=== PATIENT | female | born 1960 | race African-American/Black ===

== ENCOUNTER 2020-03-15 10:52 | Outpatient (REF) | payer OTHER, SELFPAY ==
--- NOTE | 2020-03-15 10:56 | MM_ITS ---
EXAMINATION: MM SCREENING DIGITAL BREAST TOMOSYNTHESIS, BILATERAL CLINICAL INFORMATION: Screening. Asymptomatic. The lifetime risk of breast cancer based on the Tyrer-Cuzick Model is 6%. COMPARISON: Mammography: 03/10/2019, 03/04/2018, 02/16/2017 TECHNIQUE: Digital breast tomosynthesis is performed in both the craniocaudal and mediolateral oblique views along with computer-aided detection (CAD). Synthesized 2D images are generated from the tomosynthesis. FINDINGS: The breasts are almost entirely fatty (ACR BI-RADS breast composition Category a). There are no significant masses, abnormal calcifications, or other abnormalities. Background stromal and fibroglandular densities are stable. The axilla and skin contours are unremarkable. MM/MM tomosynthesis screening BI IMPRESSION: No mammographic evidence of malignancy. ASSESSMENT: BI-RADS 1: Negative RECOMMENDATION: Routine annual mammography screening. This patient's information was entered into a reminder system with a target due date for their next mammogram.
== END 2020-03-15 10:53 | disposition home or self-care (01) ==
LOC: HO.MAMMO 10:52
PROVIDERS: PCP Internal Medicine; Visit Provider Internal Medicine
DX: Z12.31 Encounter for screening mammogram for malignant neoplasm of breast (principal)
CPT/HCPCS: 77063; 77067

== ENCOUNTER 2021-05-11 14:18 | Outpatient (REF) | payer OTHER, SELFPAY ==
--- NOTE | ~2021-05-11 | MM_ITS ---
EXAMINATION: MM SCREENING DIGITAL BREAST TOMOSYNTHESIS, BILATERAL CLINICAL INFORMATION: Screening. Asymptomatic. The lifetime risk of breast cancer based on the Tyrer-Cuzick Model is 7%. COMPARISON: Mammography: 03/15/2020, 03/10/2019, 03/04/2018 TECHNIQUE: Digital breast tomosynthesis is performed in both the craniocaudal and mediolateral oblique views along with computer-aided detection (CAD). Synthesized 2D images are generated from the tomosynthesis. FINDINGS: The breasts are almost entirely fatty (ACR BI-RADS breast composition Category a). Stromal and fibroglandular densities are stable. There are no significant masses, abnormal calcifications, or other abnormalities. The skin contours are smooth. The axilla are unremarkable. There are no significant changes from prior studies. MM/MM tomosynthesis screening BI IMPRESSION: No mammographic evidence of malignancy. ASSESSMENT: BI-RADS 1: Negative RECOMMENDATION: Routine annual mammography screening. This patient's information was entered into a reminder system with a target due date for their next mammogram.
== END 2021-05-11 14:19 | disposition home or self-care (01) ==
LOC: HO.MAMMO 14:18
PROVIDERS: PCP Internal Medicine; Visit Provider Internal Medicine
DX: Z12.31 Encounter for screening mammogram for malignant neoplasm of breast (principal)
CPT/HCPCS: 77063; 77067

== ENCOUNTER 2022-05-17 09:27 | Outpatient (REF) | payer OTHER, SELFPAY ==
--- NOTE | ~2022-05-17 | MM_ITS ---
EXAMINATION: MM SCREENING DIGITAL BREAST TOMOSYNTHESIS, BILATERAL CLINICAL INFORMATION: Screening. Asymptomatic. The lifetime risk of breast cancer based on the Tyrer-Cuzick Model is 7%. COMPARISON: Mammography: 05/11/2021, 03/15/2020, 03/10/2019 TECHNIQUE: Digital breast tomosynthesis is performed in both the craniocaudal and mediolateral oblique views along with computer-aided detection (CAD). Synthesized 2D images are generated from the tomosynthesis. Additional left CC and left MLO views are provided. FINDINGS: The breasts are almost entirely fatty (ACR BI-RADS breast composition Category a). There are no significant masses, abnormal calcifications, or other abnormalities. Background stromal and fibroglandular densities are similar to previous exams. No developing density or architectural abnormality. The axilla and skin contours are unremarkable. No significant changes. MM/MM tomosynthesis screening BI IMPRESSION: No mammographic evidence of malignancy. ASSESSMENT: BI-RADS 1: Negative RECOMMENDATION: Routine annual mammography screening. This patient's information was entered into a reminder system with a target due date for their next mammogram.
== END 2022-05-17 09:28 | disposition home or self-care (01) ==
LOC: HO.MAMMO 09:27
PROVIDERS: Absent Provider Nurse Practitioner Women's Health; Visit Provider Internal Medicine
DX: Z12.31 Encounter for screening mammogram for malignant neoplasm of breast (principal)
CPT/HCPCS: 77063; 77067

== ENCOUNTER 2023-05-31 09:47 | Outpatient (REF) | payer OTHER, SELFPAY | END 2023-05-31 09:48 | disposition home or self-care (01) | LOC: HO.MAMMO 09:47 | PROVIDERS: PCP Internal Medicine; Visit Provider Internal Medicine | DX: Z12.31 Encounter for screening mammogram for malignant neoplasm of breast (principal) | CPT/HCPCS: 77063; 77067 ==

== ENCOUNTER → 2023-05-31 10:00 | Outpatient (BNV) | payer OTHER, SELFPAY | PROVIDERS: PCP Internal Medicine; Visit Provider Radiology Diagnostic Radiology | DX: Z12.31 Encounter for screening mammogram for malignant neoplasm of breast (principal) | CPT/HCPCS: 77063; 77067 ==

== ENCOUNTER 2024-06-05 10:19 | Outpatient (REF) | payer OTHER, SELFPAY ==
--- OUTSIDE RECORDS SUMMARY | 2024-06-05 12:06 | XMS_ITS | Patient Health Record ---
Author Organization [facility] Address [address] [place] [address] Care Team Providers Care Freight Representative Name Role Phone Karoline Ceron Unavailable [phone] Reason For Referral No Information Medications Medication SIG (Take, Route, Frequency, Duration) Notes Start Date End Date Status amLODIPine Besylate 5MG 1 ORAL daily for -3 [facility] Active hydroCHLOROthiazide 25mg 1 ORAL daily for -3 [facility] 03/01 Active Problems Problem Type SNOMED Code ICD Code Onset Dates Problem Status W/U Status Risk Notes Problem Postmenopausal bleeding (78644229) Postmenopausal bleeding (627.1) Active confirmed Diag Plan Of Treatment No Information Insurance Providers Payer Name Payer Address Payer Phone Subscriber Number Group Number Insured Name Patient Relationship to Insured Coverage Start Date Coverage End Date [facility] [address] [place] [address] [phone] [id number] BERNARDINO HOOKS Self - patient is the insured
== END 2024-06-05 10:20 | disposition home or self-care (01) ==
LOC: HO.MAMMO 10:19
PROVIDERS: PCP Internal Medicine; Visit Provider Internal Medicine
DX: Z12.31 Encounter for screening mammogram for malignant neoplasm of breast (principal)
CPT/HCPCS: 77063; 77067

== ENCOUNTER → 2024-06-05 10:30 | Outpatient (BNV) | payer OTHER, SELFPAY | PROVIDERS: PCP Internal Medicine; Visit Provider Internal Medicine | DX: Z12.31 Encounter for screening mammogram for malignant neoplasm of breast (principal) | CPT/HCPCS: 77063; 77067 ==

== ENCOUNTER 2025-01-16 09:16 | Outpatient (AMB) | payer OTHER, SELFPAY ==
--- NOTE | 2025-01-16 09:22 | A.OFFPC_ITS ---
Vital Signs 01/16/25 09:23 Height 5 ft 3.5 in Weight 211 lb 2 oz BMI 36.8 BP 130/80 Blood Pressure Location Lt brachial Position Sitting Respiration 16 Pulse 72 Pulse Source Pulse Oximeter Temp 97.1 F Temp Source Temporal Artery Scan Pulse Oximetry (%) 98 Oxygen Delivery Method Room Air Intake Visit Reasons: reestablish care, routine Project Associate Required: No Accompanied by: Self / Same As Patient Allergies No Known Allergies Allergy (Verified 01/16/25 09:25) Medication List - Last Reconciled 01/16/25 by Isha Moyer MD albuterol sulfate 90 mcg/actuation 2 puffs inhalation QID PRN amlodipine 10 mg PO DAILY ascorbic acid (vitamin C) 500 mg PO DAILY carbamide peroxide 6.5% (Ear Drops (carbamide peroxide)) 5 drps otic (ear) right TID PRN fluticasone propionate 50 mcg/actuation 2 sprays intranasal DAILY magnesium oxide 400 mg PO DAILY multivitamin 1 tab PO DAILY multivitamin with minerals (Hair,Skin and Nails tablet) 1 tab PO DAILY simvastatin 10 mg PO BEDTIME spironolactone 25 mg PO DAILY valsartan 40 mg PO DAILY Tobacco use date assessed: 01/16/25 Fall risk assessment: No Falls in past year Last assessed Fall Risk: 01/16/25 Dental Screening Dental Screen Date: 01/16/25 Did you have a dental visit in the last 12 months?: No Did you have a dental problem in the last 6 months where you did not have access to dental care?: No Was dental information given to patient?: Patient has dentist HPI HPI Comments History of Present Illness Details The patient is a 64-year-old female presenting to re-establish care and to discuss multiple concerns. Obesity: The patient reports a 4-pound weight gain. A previous attempt to get [employer] for weight management and sleep apnea was denied by her prior insurance. She has a gym membership but has not been going, in part due to her vertigo. She has previously used a calorie monitoring pinky. Essential hypertension: The patient takes amlodipine 10 mg, spironolactone, and valsartan for blood pressure and reports being compliant with her medication. She reports recent headaches across her forehead, which might be tension-related or due to suboptimal water intake. She also noted a headache after consuming a salty seafood meal. Vertigo: The patient experienced a severe episode of vertigo in November after rolling over in bed, which was accompanied by nausea. She took meclizine three times a day, but it did not provide relief. She continues to have residual feelings of being off-balance, which is exacerbated at work where the floor is not sturdy. She believes a prior attempt to flush her ears at home also triggered her vertigo. Sleep Apnea: The patient reports she has been using her CPAP machine, though she sometimes falls asleep before putting it on. Her current machine is a newer, less bulky model. She is aware that Zepbound is FDA approved to help with sleep apnea. Cataracts: The patient is scheduled for cataract surgery with Dr. Muñoz, with the right eye on March 15 and the left eye on April 04. She requires a preoperative medical clearance visit before the surgery. She notes that she avoids driving at night. Allergies: The patient has a significant allergy to cats, which causes itchiness. She prefers Zyrtec for her allergy symptoms. She previously attempted allergy testing with Dr. Skelton but had to stop on three separate occasions due to reactions, including increased blood pressure and a swollen eye. She also developed a rash on her neck, which she suspects was a reaction to a necklace, and has since stopped wearing it. Grief Reaction: The patient continues to experience moments of grief, particularly around holidays and the anniversary of her son's . The severe vertigo episode in November occurred after her son's anniversary, and she also experienced a cough and illness during that time, which may have been stress-related. She has declined the offer to speak with a therapist at this time. Cerumen impaction: The patient has cerumen impaction, which is worse in the right ear. She reports that flushing does not work well for her and that a previous ENT visit resulted in bleeding in her ear. She last used Debrox drops in November. Medical History: - Essential hypertension - Hyperlipidemia - Vertigo - Obstructive sleep apnea, on CPAP - Reactive airway disease - Allergic rhinitis and cat allergy - History of adverse reactions to allerg y testing Social History: - Exercise: Patient has a gym membership but has not been exercising regularly, partly due to vertigo. - Nutrition: Reports suboptimal water in take and has experienced headaches and stomach irritation after consuming salty and spicy foods. - Functional Status: Avoids driving at [facility] [employer]. Review of Systems - General: Reports weight gain of 4 poun ds. - HEENT: Reports intermittent frontal he adaches. - Reports feeling of ear blockage, worse in the right ear. - Reports avoiding night driving. - Neurological: Reports episodes of vert igo and residual feelings of being off- balance. - Respiratory: Reports recent use of alb uterol inhaler for reactive airways. - Gastrointestinal: Reports nausea with severe vertigo. - Reports stomach irritation after eatin g spicy food. - Psychiatric: Reports periods of grief and sadness related to her son's . Physical Exam - HEENT: Examination of ears reveals cerumen in the left ear and impacted cerumen in the right ear. -Neck: Supple, no lymphadenopathy. - Cardiovascular: Regular rate and rhyth m. A soft, murmur was auscultated. - Pulmonary: Lungs are clear to ausculta tion bilaterally, with no wheezing. - Abdomen: Soft, nondistended, and nonte nder to palpation with normal bowel sounds. Assessment and Plan 1. Obese - Patient has gained 4 pounds. - She is counseled on increasing aerobic exercise to at least 2.5-3 hours per week and reinstituting use of a calorie-tracking pinky. - A prior authorization for Zepbound 2.5 mg will be submitted to her new insurance for weight management and her comorbid sleep apnea if required. - A weight loss goal of at least 5 pound s in 4 months was discussed. 2. Vertigo - Patient has persistent symptoms follow ing a severe episode in November. - A referral will be placed for vestibul ar rehabilitation therapy to help with repositioning maneuvers. - Meclizine 25 mg TID PRN was refilled, although she reports limited efficacy. 3. Essential Hypertension - Well-controlled on current medications . - Refills for amlodipine, spironolactone , and valsartan were sent. - The patient was counseled on increasin g hydration and avoiding high-sodium foods to help manage associated headaches. 4. Hyperlipidemia - A refill for simvastatin was sent. - Cholesterol levels will be checked wit h today's lab draw. 5. Allergic Rhinitis and Allergies - The patient has a strong preference fo r Zyrtec, so a 90-day supply was prescribed. - A referral will be sent to Dr. Skelton for re-evaluation of her allergies, given her history of reactions to testing. - For her suspected contact dermatitis, she was advised to avoid the irritant and use topical vitamin E oil or aloe vera. 6. Cataracts, bilateral - The patient is scheduled for surgery i march and requires preoperative clearance. - She was instructed to confirm the requ ired timing with the surgeon's office (likely 30 days prior) and then call to schedule her pre-op visit. 7. Cerumen Impaction - The patient has significant impaction, particularly in the right ear. - She was instructed on a home regimen o f Debrox drops (5 drops BID for 4 days) followed by gentle, lukewarm water irrigation. 8. Vitamin/Supplement Management - She was advised to reduce her dose to no more than 3000 mg per week (e.g., one 1000 mg dose three times weekly) and to send a photo of her supplements via the portal. - A magnesium level will be checked. 9. Grief Reaction - The patient's grief surrounding her so n's appears to be a stressor that may have contributed to her recent vertigo and illness. - She was offered a referral for career development counselor ing but declined at this time. Discussion Notes We discussed her persistent vertigo, and I explained that a referral to physical therapy for vestibular rehab could help address the underlying cause. We reviewed the importance of lifestyle modifications for weight management, and I counseled her to aim for 2.5 to 3 hours of aerobic exercise per week and to use a calorie tracking pinky to monitor her intake, with a goal of losing at least 5 pounds by her next physical in four months. Patient Instructions - Please go to the lab to have your blo od drawn today. - You will receive a call to schedule an appointment for vestibular therapy to help with your dizziness. - We have sent a referral to Dr. Skelton 's office for your allergies; they will contact you to schedule a visit. - Confirm the timing required for your p re-surgery medical clearance with your eye surgeon's office, and then call us to book that appointment. - For your blocked ears, place 5 Debrox drops in each ear twice a day for four days. Let the drops soak in by lying on your side. Afterwards, you can gently rinse your ears with lukewarm water using a small syringe. - Reduce your magnesium supplement intak e. If the pill is 1000 mg, take it only three times per week. - Aim for at least 2.5 to 3 hours of aer obic exercise (like brisk walking, jogging, or using an elliptical) each week. REPLACED BY [facility] Medical History (Updated 01/16/25 @ 10:27 by Isha Moyer MD) Vitamin D deficiency Allergic rhinitis Fibroid Hyperlipidemia, unspecified History of endometrial biopsy Vertigo Obstructive sleep apnea GERD (gastroesophageal reflux disease) Primary hypertension Impaired fasting glucose Surgical History (Updated 01/16/25 @ 09:57 by Isha Moyer MD) H/O parathyroidectomy History of colonoscopy (~04/05/17) Family History (Updated 01/15/25 @ 18:21 by Isha Moyer MD) Other Coronary artery disease FH: prostate cancer Heart attack Lung cancer Primary hypertension Stroke Social History Housing: House Patient Tobacco Use Status: Never used Tobacco e-Cigarette/Vaping Use: Never Used Current occupational status: employed 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 How often do you have a drink containing alcohol?: Never 3. How often do you have six or more drinks on one occasion?: Never Total Score: 0 Physical exam (Primary Care) Vital Signs: Last Vital Signs Temp 97.1 F 01/16/25 09:23 Pulse 72 01/16/25 09:23 Resp 16 01/16/25 09:23 BP 130/80 01/16/25 09:23 Pulse Ox 98 01/16/25 09:23 Oxygen Delivery Method Room Air 01/16/25 09:23 BMI result Body Mass Index 36.8 Tobacco/Smoking Status: Tobacco use Status Tobacco use date assessed 01/16/25 01/16/25 09:30 Patient Tobacco Use Status Never used Tobacco 01/16/25 09:30 e-Cigarette/Vaping Use Never Used 01/16/25 09:30 Coding Level of Care Code Est Pt Level 4 (51957) Complex EM visit Add On G2211 Diagnoses Primary hypertension I10 Hyperlipidemia, unspecified hyperlipidemia type E78.5 Hyperlipidemia type: unspecified Vertigo R42 Obstructive sleep apnea G47.33 Allergic rhinitis, unspecified seasonality, unspecified trigger J30.9 Allergic rhinitis seasonality: unspecified Allergic rhinitis trigger: unspecified Impaired fasting glucose R73.01 Vitamin D deficiency E55.9 Assessment & Plan Assessment & Plan (1) Primary hypertension: Code(s): I10 - Essential (primary) hypertension Category: Medical (2) Hyperlipidemia, unspecified: Code(s): E78.5 - Hyperlipidemia, unspecified Category: Medical Qualifiers: Hyperlipidemia type: unspecified Qualified Code(s): E78.5 - Hyperlipidemia, unspecified (3) Vertigo: Code(s): R42 - Dizziness and giddiness Category: Medical (4) Obstructive sleep apnea: Code(s): G47.33 - Obstructive sleep apnea (adult) (pediatric) Category: Medical (5) Allergic rhinitis: Code(s): J30.9 - Allergic rhinitis, unspecified Category: Medical Qualifiers: Allergic rhinitis seasonality: unspecified Allergic rhinitis trigger: unspecified Qualified Code(s): J30.9 - Allergic rhinitis, unspecified (6) Impaired fasting glucose: Code(s): R73.01 - Impaired fasting glucose Category: Medical (7) Vitamin D deficiency: Code(s): E55.9 - Vitamin D deficiency, unspecified Category: Medical Plan - Placed referral for vestibular rehabilitation therapy for vertigo. - Placed referral to Dr. Skelton for allergy re-evaluation. - Ordered lab work: cholesterol panel, blood count, vitamin D, calcium, and magnesium levels. - Patient Counseling: Advised patient to reduce magnesium supplement intake to no more than 3000mg per week. - Counseled on lifestyle modifications, including increasing aerobic exercise to 2.5-3 hours weekly and utilizing a calorie tracking application. - Instructed patient on home treatment for cerumen impaction with Debrox drops followed by gentle irrigation. Orders: Orders PT Evaluation and Treatment Today R42 - Dizziness and giddiness Complete Blood Count Auto Diff Today E55.9 - Vitamin D deficiency, unspecified, E78.5 - Hyperlipidemia, unspecified, E89.2 - Postprocedural hypoparathyroidism, I10 - Essential (primary) hypertension, R73.01 - Impaired fasting glucose Magnesium Today E55.9 - Vitamin D deficiency, unspecified, E78.5 - Hyperlipidemia, unspecified, E89.2 - Postprocedural hypoparathyroidism, I10 - Essential (primary) hypertension, R73.01 - Impaired fasting glucose Lipid Panel Today E55.9 - Vitamin D deficiency, unspecified, E78.5 - Hyperlipidemia, unspecified, E89.2 - Postprocedural hypoparathyroidism, I10 - Essential (primary) hypertension, R73.01 - Impaired fasting glucose Comprehensive Met. Panel Today E55.9 - Vitamin D deficiency, unspecified, E78.5 - Hyperlipidemia, unspecified, E89.2 - Postprocedural hypoparathyroidism, I10 - Essential (primary) hypertension, R73.01 - Impaired fasting glucose Vitamin D 25-OH Total Today E55.9 - Vitamin D deficiency, unspecified, E78.5 - Hyperlipidemia, unspecified, E89.2 - Postprocedural hypoparathyroidism, I10 - Essential (primary) hypertension, R73.01 - Impaired fasting glucose Hemoglobin A1c Today R73.01 - Impaired fasting glucose Referrals Allergy & Immunology Referral J30.9 - Allergic rhinitis, unspecified Medications: New amlodipine 10 mg PO DAILY 90 tabs 3RF spironolactone 25 mg PO DAILY 90 tabs 3RF meclizine 25 mg PO TID 30 tabs 5RF vertigo cetirizine (All Day Allergy (cetirizine)) 10 mg PO DAILY PRN 90 tabs 2RF allergy symptoms simvastatin 10 mg PO BEDTIME 90 tabs 3RF tirzepatide (weight loss) (Zepbound) for 4 weeks 2.5 mg (0.5 mL) subcut QWEEK 2 mL 1RF G47.33 - Obstructive sleep apnea (adult) (pediatric), R73.01 - Impaired fasting glucose valsartan 40 mg PO DAILY 90 tabs 3RF
[2025-01-16 09:23] VITALS: BP 130/80; PULSE 72; RESP 16; TEMP 36.2; O2SAT 98; BMI 36.8
--- OUTSIDE RECORDS SUMMARY | 2025-01-16 10:11 | XMS_ITS | Patient Health Record ---
Author Organization [facility] Address [address] [place] [address] Care Team Providers Care Communications Professor Name Role Phone NONE, NONE Primary Care Provider Mason Lackey [phone] Reason For Referral No Information Plan Of Treatment No Information
--- OUTSIDE RECORDS SUMMARY | 2025-01-16 10:11 | XMS_ITS | Patient Health Record ---
Author Organization [facility] Address [address] [place] [address] Care Team Providers Care Fire Protection Engineer Name Role Phone Karoline Ceron Unavailable [phone] Reason For Referral No Information Medications Medication SIG (Take, Route, Frequency, Duration) Notes Start Date End Date Status amLODIPine Besylate 5MG 1 ORAL daily; Duration: -3 [facility] 03/01/2013 Active hydroCHLOROthiazide 25mg 1 ORAL daily; Duration: -3 [facility] 03/01/2013 Active Problems Problem Type SNOMED Code ICD Code Onset Dates Problem Status W/U Status Risk Notes Problem Postmenopausal bleeding (72429511) Postmenopausal bleeding (627.1) Active confirmed Diag Plan Of Treatment No Information Insurance Providers Payer Name Payer Address Payer Phone Subscriber Number Group Number Insured Name Patient Relationship to Insured Coverage Start Date Coverage End Date [facility] [address] [place] [address] [id number] BERNARDINO HOOKS Self - patient is the insured
== END 2025-01-16 10:15 | disposition home or self-care (01) ==
LOC: HO.HMCHD 09:16
PROVIDERS: PCP Internal Medicine; Visit Provider Internal Medicine
DX: I10 Essential (primary) hypertension (principal); E78.5 Hyperlipidemia, unspecified; R42 Dizziness and giddiness; G47.33 Obstructive sleep apnea (adult) (pediatric); J30.9 Allergic rhinitis, unspecified; R73.01 Impaired fasting glucose; E55.9 Vitamin D deficiency, unspecified

== ENCOUNTER 2025-01-16 10:21 | Outpatient (REF) | payer OTHER, SELFPAY ==
[2025-01-16 13:36] LABS: MANUAL DIFF FLAG NO
[2025-01-16 13:42] LABS: Hematocrit 42.8 % (37.0-47.0); Hemoglobin 13.9 g/dl (12.0-16.0); Imm Gran Abs Auto 0.01 X10*3/uL (0.00-0.03); Imm Gran Pct Auto 0.3 % (0.0-0.4); Lymphocytes Absolute Auto 1.1 X10*3/uL (1.2-4.9); Mean Corpuscular HGB Conc 32.5 g/dl (31.0-35.0); Mean Corpuscular Hemoglobin 29.0 pg (27.0-33.0); Mean Corpuscular Volume 89.2 fL (80.0-98.0); NRBC Abs Auto 0.000 X10*3/uL (0.0-0.012); NRBC Pct Auto 0.0 /100WBC (0.0-0.2); Platelet Count 155 X10*3/uL (160-400); Red Blood Count 4.80 X10*6/uL (4.20-5.50); White Blood Count 3.3 X10*3/uL (4.8-10.8)
[2025-01-16 13:46] LABS: Alanine Aminotransferase 19 U/L (0-31); Albumin Level 4.7 g/dL (3.5-5.0); Alkaline Phosphatase 73 U/L (39-117); Anion Gap 9 (12-20); Aspartate Amino Transferase 24 U/L (5-31); Blood Urea Nitrogen 20 mg/dL (9-16); Calcium 9.3 mg/dL (8.4-10.2); Carbon Dioxide 29 mmol/L (22-29); Chloride 107 mmol/L (96-108); Cholesterol 176 mg/dL (<200); Estimated Glomerular Filt Rate > 60; HDL Cholesterol 58 mg/dL (>40); Magnesium 1.9 mg/dL (1.6-2.6); Potassium 4.0 mmol/L (3.3-5.1); Sodium 141 mmol/L (135-145); Total Protein 7.4 g/dL (6.5-8.0); Triglycerides 54 mg/dL (<150)
== END 2025-01-16 10:22 | disposition home or self-care (01) ==
LOC: HO.10HDL 10:21
PROVIDERS: Visit Provider Internal Medicine
DX: I10 Essential (primary) hypertension (principal); E78.5 Hyperlipidemia, unspecified; E55.9 Vitamin D deficiency, unspecified; E89.2 Postprocedural hypoparathyroidism; R73.01 Impaired fasting glucose
CPT/HCPCS: 36415; 80053; 80061; 82306; 83036; 83735; 85025

== ENCOUNTER 2025-01-28 09:53 | Outpatient (REF) | payer OTHER, SELFPAY ==
[2025-01-28 13:03] LABS: MANUAL DIFF FLAG NO
[2025-01-28 13:19] LABS: Hematocrit 41.7 % (37.0-47.0); Hemoglobin 13.1 g/dl (12.0-16.0); Imm Gran Abs Auto 0.00 X10*3/uL (0.00-0.03); Imm Gran Pct Auto 0.0 % (0.0-0.4); Lymphocytes Absolute Auto 1.2 X10*3/uL (1.2-4.9); Mean Corpuscular HGB Conc 31.4 g/dl (31.0-35.0); Mean Corpuscular Hemoglobin 28.7 pg (27.0-33.0); Mean Corpuscular Volume 91.2 fL (80.0-98.0); NRBC Abs Auto 0.000 X10*3/uL (0.0-0.012); NRBC Pct Auto 0.0 /100WBC (0.0-0.2); Platelet Count 136 X10*3/uL (160-400); Red Blood Count 4.57 X10*6/uL (4.20-5.50); White Blood Count 3.6 X10*3/uL (4.8-10.8)
== END 2025-01-28 09:54 | disposition home or self-care (01) ==
LOC: HO.HKASLDS 09:53
PROVIDERS: PCP Internal Medicine; Visit Provider Internal Medicine
DX: D69.1 Qualitative platelet defects (principal); D72.819 Decreased white blood cell count, unspecified
CPT/HCPCS: 36415; 85025

== ENCOUNTER 2025-02-12 15:15 | Outpatient (REF) | payer OTHER, SELFPAY ==
[2025-02-12 16:20] LABS: Appearance Urine Cloudy; Glucose Urine UA Negative (Negative); PH 5.5 (5.0-9.0); Specific Gravity - Urine 1.020 (1.005-1.025); UMIC TRIGGER UA YES
--- OUTSIDE RECORDS SUMMARY | 2025-02-12 21:38 | XMS_ITS | Patient Health Record ---
Author Organization [facility] Address [address] [place] [address] Care Team Providers Care Floodplain Manager Name Role Phone NONE, NONE Primary Care Provider Mason Lackey [phone] Reason For Referral No Information Plan Of Treatment No Information
--- OUTSIDE RECORDS SUMMARY | 2025-02-12 21:39 | XMS_ITS | Patient Health Record ---
Author Organization [facility] Address [address] [place] [address] Care Team Providers Care Athletic Events Scorer Name Role Phone Karoline Ceron Unavailable [phone] Reason For Referral No Information Medications Medication SIG (Take, Route, Frequency, Duration) Notes Start Date End Date Status amLODIPine Besylate 5MG 1 ORAL daily; Duration: -3 [facility] 03/01/2013 Active hydroCHLOROthiazide 25mg 1 ORAL daily; Duration: -3 [facility] 03/01/2013 Active Problems Problem Type SNOMED Code ICD Code Onset Dates Problem Status W/U Status Risk Notes Problem Postmenopausal bleeding (45352098) Postmenopausal bleeding (627.1) Active confirmed Diag Plan Of Treatment No Information Insurance Providers Payer Name Payer Address Payer Phone Subscriber Number Group Number Insured Name Patient Relationship to Insured Coverage Start Date Coverage End Date [facility] [address] [place] [address] [id number] BERNARDINO HOOKS Self - patient is the insured
== END 2025-02-12 15:16 | disposition home or self-care (01) ==
LOC: HO.HMGCLDS 15:15
PROVIDERS: PCP Internal Medicine; Visit Provider Internal Medicine
DX: N20.0 Calculus of kidney (principal)
CPT/HCPCS: 81001

== ENCOUNTER 2025-02-21 07:54 | Outpatient (AMB) | payer OTHER, SELFPAY ==
--- NOTE | 2025-02-21 08:01 | MHC.PC.OV ---
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 Required: No Accompanied by: Self / Same As Patient Allergies No Known Allergies Allergy (Verified 02/21/25 08:02) Medication List - Last Reconciled 02/21/25 by Isha Moyer MD albuterol sulfate 90 mcg/actuation 2 puffs inhalation QID PRN amlodipine 10 mg PO DAILY ascorbic acid (vitamin C) 500 mg PO DAILY carbamide peroxide 6.5% (Ear Drops (carbamide peroxide)) 5 drps otic (ear) right TID PRN cetirizine (All Day Allergy (cetirizine)) 10 mg PO DAILY PRN fluticasone propionate 50 mcg/actuation 2 sprays intranasal DAILY PRN magnesium oxide 400 mg PO DAILY meclizine 25 mg PO TID PRN multivitamin 1 tab PO DAILY multivitamin with minerals (Hair,Skin and Nails tablet) 1 tab PO DAILY omeprazole 20 mg PO DAILY simvastatin 10 mg PO BEDTIME spironolactone 25 mg PO DAILY valsartan 40 mg PO DAILY Tobacco use date assessed: 01/16/25 Fall risk assessment: No Falls in past year Last assessed Fall Risk: 02/21/25 Dental Screening Dental Screen Date: 01/16/25 HPI HPI Comments History of Present Illness Details The patient is a 64 year old female presenting for preop for bilateral cataract surgery to be done on March 15 and April 04 [address] done [address] Dr. Muñoz from [facility]. Denies any chest pain, sob. No leg swelling. However, patient also notes some ongoing complaints. Urinary Tract Infection: The patient was recently diagnosed with a UTI after experiencing back pain. She was prescribed Macrobid but stopped taking it after one dose due to vomiting, and therefore did not complete the full course of treatment. Previously, she had taken Macrobid for a UTI without any issues. She reports feeling sick on Tuesday with chills but denies having a fever and her COVID test was negative. She currently reports some lower back pain but denies any pain higher up. Gastroesophageal Reflux Disease: The patient has a history of acid reflux, which she felt was exacerbated by the recent episode of vomiting. She identifies serrato and sausage as dietary triggers for her heartburn. She recently restarted taking omeprazole. 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 She previously saw a gold cutter for this condition in the and has an upcoming appointment to see her again. Essential Hypertension: The patient has a history of hypertension, which is currently well-controlled with medication. . [facility] Medical History (Updated 02/21/25 @ 16:44 by Isha Moyer MD) UTI (urinary tract infection) Chills Nephrolithiasis Decreased white blood cell count Thrombocytopenia Vitamin D deficiency Allergic rhinitis Fibroid Hyperlipidemia, unspecified Vertigo Obstructive sleep apnea GERD (gastroesophageal reflux disease) Primary hypertension Impaired fasting glucose Surgical History (Updated 01/16/25 @ 09:57 by Isha Moyer MD) History of endometrial biopsy H/O parathyroidectomy History of colonoscopy (~04/05/17) Family History (Updated 02/21/25 @ 08:07 by Nina Little CMA) Other Coronary artery disease FH: prostate cancer Heart attack Lung cancer Primary hypertension Stroke Social History Housing: House Patient Tobacco Use Status: Never used Tobacco e-Cigarette/Vaping Use: Never Used Current occupational status: employed 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 How often do you have a drink containing alcohol?: Never 3. How often do you have six or more drinks on one occasion?: Never Total Score: 0 Review of Systems Narrative Review of Systems - Constitutional: Denies fever, reports past chills. - Gastrointestinal: Reports recent vomiting, history of acid reflux exacerbated by certain foods. - Genitourinary: Reports lower back pain - Musculoskeletal: Reports back pain. Physical exam (Primary Care) Vital Signs: Last Vital Signs Temp 97.1 F 02/21/25 08:03 Pulse 76 02/21/25 08:03 Resp 16 02/21/25 08:03 BP 120/74 02/21/25 08:03 Pulse Ox 96 02/21/25 08:03 Oxygen Delivery Method Room Air 02/21/25 08:03 BMI result Body Mass Index 36.6 Tobacco/Smoking Status: Tobacco use Status Tobacco use date assessed 01/16/25 02/21/25 08:09 Patient Tobacco Use Status Never used Tobacco 02/21/25 08:09 e-Cigarette/Vaping Use Never Used 02/21/25 08:09 Narrative Physical Exam - Gen: NAD - Cardiovascular: clear to auscultation bilaterally, soft murmur across precordium, possible PVC auscultated - Lungs: Clear to auscultation bilaterally. - Abdomen: Soft and non-tender with normal bowel sounds. Coding Level of Care Code Est Pt Level 4 (84376) Add On Problem Visit Only Diagnoses Primary hypertension I10 Chills R68.83 Neutropenia, unspecified type D70.9 Neutropenia type: unspecified Leukopenia type: neutropenia Assessment & Plan Assessment & Plan (1) Primary hypertension: Code(s): I10 - Essential (primary) hypertension Category: Medical (2) Chills: Code(s): R68.83 - Chills (without fever) Category: Medical (3) Decreased white blood cell count: Code(s): D72.819 - Decreased white blood cell count, unspecified Category: Medical Qualifiers: Neutropenia type: unspecified Leukopenia type: neutropenia Qualified Code(s): D70.9 - Neutropenia, unspecified Plan Assessment and Plan 1. Urinary Tract Infection - The patient has not completed a full course of antibiotics due to an adverse reaction to Macrobid. - She reports some persistent lower back discomfort. - A repeat urinalysis and urine culture will be obtained today. - She will be started on Cephalexin 500 mg twice daily for 5 days, with instructions to take it with food. - The antibiotic choice may be adjusted based on the final culture and sensitivity results. 2. Pre-operative Evaluation / General Health Assessment - Patient can proceed with cataract surgeries as scheduled assuming resolution of her symptoms. - An EKG was performed. NSR, normal axis, t wave inversions in I, II. Will obtain old EKG for comparison. 3. Chronic Leukopenia - The patient has a longstanding history of low white blood cell count. - Follow up with hematology 4. Gastroesophageal Reflux Disease - The patient reports symptoms consistent with GERD, triggered by certain foods. - She has appropriately restarted omeprazole and is advised to continue it. 5. Essential Hypertension - Her blood pressure is well-controlled on medication. - She is encouraged to continue with weight loss and hydration. 6. Health Maintenance - The patient is interested in a nutrition program for weight management. Plan - Obtain urinalysis and urine culture today. - Prescribe Cephalexin 500 mg tablets, to be taken orally twice daily for 5 days. - Draw labs for electrolytes, a blood culture, and a hepatitis panel. - Patient to continue omeprazole for GERD. - Advised patient to hydrate with 64 oz of water daily. - Patient to follow up with hematology - Patient to call and schedule with allergy/immunology - Follow-up appointments are scheduled for a physical in May Patient Instructions - Take the new antibiotic, Cephalexin 500 mg, twice a day with food for 5 days. - Drink at least 8 glasses (64 ounces) of water every day. Orders: Orders Complete Blood Count Auto Diff Today R68.83 - Chills (without fever) Basic Metabolic Panel Today R68.83 - Chills (without fever) Blood Culture X2 Today R68.83 - Chills (without fever) Urine Culture Today N39.0 - Urinary tract infection, site not specified, R68.83 - Chills (without fever) Magnesium Today I10 - Essential (primary) hypertension, R68.83 - Chills (without fever) UA and rflx microscopic Today N39.0 - Urinary tract infection, site not specified Medications: New cephalexin 500 mg PO BID 10 caps 0RF Changed From meclizine 25 mg PO TID 30 tabs 5RF vertigo To meclizine 25 mg PO TID PRN
--- OUTSIDE RECORDS SUMMARY | 2025-02-21 08:01 | XMS_ITS | Patient Health Record ---
Author Organization [facility] Address [address] [place] [address] Care Team Providers Care City Council Member Name Role Phone NONE, NONE Primary Care Provider Mason Lackey [phone] Reason For Referral No Information Plan Of Treatment No Information
--- OUTSIDE RECORDS SUMMARY | 2025-02-21 08:01 | XMS_ITS | Patient Health Record ---
Author Organization [facility] Address [address] [place] [address] Care Team Providers Care Child Care Team Lead Name Role Phone Karoline Ceron Unavailable [phone] Reason For Referral No Information Medications Medication SIG (Take, Route, Frequency, Duration) Notes Start Date End Date Status amLODIPine Besylate 5MG 1 ORAL daily; Duration: -3 Rupert-MJ 03/01/2013 Active hydroCHLOROthiazide 25mg 1 ORAL daily; Duration: -3 Rupert-MJ 03/01/2013 Active Problems Problem Type SNOMED Code ICD Code Onset Dates Problem Status W/U Status Risk Notes Problem Postmenopausal bleeding (05815226) Postmenopausal bleeding (627.1) Active confirmed Diag Plan Of Treatment No Information Insurance Providers Payer Name Payer Address Payer Phone Subscriber Number Group Number Insured Name Patient Relationship to Insured Coverage Start Date Coverage End Date [facility] [address] [place] [address] [id number] BERNARDINO HOOKS Self - patient is the insured
[2025-02-21 08:03] VITALS: BP 120/74; PULSE 76; RESP 16; TEMP 36.2; O2SAT 96; BMI 36.6
== END 2025-02-21 08:41 | disposition home or self-care (01) ==
LOC: HO.HMCHD 07:55
PROVIDERS: PCP Internal Medicine; Visit Provider Internal Medicine
DX: I10 Essential (primary) hypertension (principal); R68.83 Chills (without fever); D70.9 Neutropenia, unspecified

== ENCOUNTER 2025-02-21 07:54 | Outpatient (REF) | payer OTHER, SELFPAY ==
[2025-02-21 10:08] LABS: MANUAL DIFF FLAG NO
[2025-02-21 10:20] LABS: Hematocrit 37.9 % (37.0-47.0); Hemoglobin 12.4 g/dl (12.0-16.0); Imm Gran Abs Auto 0.02 X10*3/uL (0.00-0.03); Imm Gran Pct Auto 0.5 % (0.0-0.4); Lymphocytes Absolute Auto 1.3 X10*3/uL (1.2-4.9); Mean Corpuscular HGB Conc 32.7 g/dl (31.0-35.0); Mean Corpuscular Hemoglobin 28.8 pg (27.0-33.0); Mean Corpuscular Volume 88.1 fL (80.0-98.0); NRBC Abs Auto 0.000 X10*3/uL (0.0-0.012); NRBC Pct Auto 0.0 /100WBC (0.0-0.2); Platelet Count 179 X10*3/uL (160-400); Red Blood Count 4.30 X10*6/uL (4.20-5.50); White Blood Count 3.8 X10*3/uL (4.8-10.8)
[2025-02-21 10:43] LABS: Appearance Urine Clear; Glucose Urine UA Negative (Negative); PH 6.0 (5.0-9.0); Specific Gravity - Urine 1.020 (1.005-1.025); UMIC TRIGGER UA YES
[2025-02-21 11:54] LABS: Anion Gap 12 (12-20); Blood Urea Nitrogen 22 mg/dL (9-16); Calcium 9.6 mg/dL (8.4-10.2); Carbon Dioxide 28 mmol/L (22-29); Chloride 107 mmol/L (96-108); Estimated Glomerular Filt Rate > 60; Magnesium 2.0 mg/dL (1.6-2.6); Potassium 3.7 mmol/L (3.3-5.1); Sodium 143 mmol/L (135-145)
[2025-02-21 13:59] LABS: HBS Num1 0.81 mIU/mL (0-7.99); HBc Num1 0.05 S/CO (0.00-0.79); HBsAGNum1 0.38 S/CO (0.00-0.99); Hepatitis A Antibody IgM 0.24 Index (0-0.79); Hepatitis B Surface Antigen Negative (Negative); ~HepC Num1 0.05 S/CO (0.00-0.79); ~Hepatitis A Antibody IgM Nonreactive (Nonreactive); ~Hepatitis B Surface Antibody NONREACTIVE (Nonreactive); ~Hepatitis C Antibody Nonreactive (Nonreactive)
== END 2025-02-21 07:55 | disposition home or self-care (01) ==
LOC: HO.LAB 07:54
PROVIDERS: PCP Internal Medicine; Visit Provider Internal Medicine
DX: I10 Essential (primary) hypertension (principal); R68.83 Chills (without fever); D69.6 Thrombocytopenia, unspecified; N39.0 Urinary tract infection, site not specified; D70.9 Neutropenia, unspecified
CPT/HCPCS: 36415; 80048; 81001; 83735; 85025; 86704; 86706; 86709; 86803; 87040; 87086; 87088; 87186; 87340

== ENCOUNTER 2025-03-04 10:14 | Outpatient (REF) | payer OTHER, SELFPAY ==
--- OUTSIDE RECORDS SUMMARY | 2025-03-04 11:33 | XMS_ITS | Patient Health Record ---
Author Organization [facility] Address [address] [place] [address] Care Team Providers Care Fws Faculty Assistant Name Role Phone Karoline Ceron Unavailable [phone] Reason For Referral No Information Medications Medication SIG (Take, Route, Frequency, Duration) Notes Start Date End Date Status amLODIPine Besylate 5MG 1 ORAL daily; Duration: -3 Rupert-MJ 03/01/2013 Active hydroCHLOROthiazide 25mg 1 ORAL daily; Duration: -3 Rupert-MJ 03/01/2013 Active Problems Problem Type SNOMED Code ICD Code Onset Dates Problem Status W/U Status Risk Notes Problem Postmenopausal bleeding (69781725) Postmenopausal bleeding (627.1) Active confirmed Diag Plan Of Treatment No Information Insurance Providers Payer Name Payer Address Payer Phone Subscriber Number Group Number Insured Name Patient Relationship to Insured Coverage Start Date Coverage End Date [facility] [address] [place] [place] [address] [phone] [id number] BERNARDINO HOOKS Self - patient is the insured
--- OUTSIDE RECORDS SUMMARY | 2025-03-04 11:33 | XMS_ITS | Patient Health Record ---
Author [facility] Address [address] [place] [address] Care Team Providers Care Evidence Specialist Name Role Phone NONE, NONE Primary Care Provider Mason Lackey [phone] Reason For Referral No Information Plan Of Treatment No Information
== END 2025-03-04 10:15 ==
LOC: HO.HMGCLDS 10:14
PROVIDERS: PCP Internal Medicine; Visit Provider Internal Medicine
DX: N39.0 Urinary tract infection, site not specified (principal); B96.20 Unspecified Escherichia coli [E. coli] as the cause of diseases classified elsewhere
CPT/HCPCS: 87086